=== PATIENT | female | born 1960 | race Caucasian/White ===

== ENCOUNTER 2018-03-22 12:34 | Emergency (ER) | payer BC ==
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
[2018-03-22] MEDS ORDERED: Diphtheria,Pertussis(Acell),Tetanus Vaccine 0.5 ML Syringe IM ONE (12:49)
[2018-03-22] MEDS ORDERED: Bacitracin Oint 1 GM U/D Packet TOP ONE (12:50)
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
[2018-03-22 19:44] VITALS: BP 119/75
== END 2018-03-22 13:51 | disposition home or self-care (01) ==
LOC: MW.ED 12:34
DX: S00.01XA Abrasion of scalp, initial encounter (principal); J44.9 Chronic obstructive pulmonary disease, unspecified; F17.210 Nicotine dependence, cigarettes, uncomplicated; Z23 Encounter for immunization; Z88.0 Allergy status to penicillin; W22.8XXA Striking against or struck by other objects, initial encounter
CPT/HCPCS: 36415; 70450; 70450-26; 72125; 72125-26; 80048; 85025; 85610; 90471; 90715; 99283; 99284-25